=== PATIENT | male | born 1980 | race Caucasian/White ===

== ENCOUNTER 2020-02-14 08:11 | Emergency (ER) | payer MEDICAID ==
[~2020-02-14] VITALS: Ht 180.3 cm; Wt 75.0 kg
--- NOTE | 2020-02-14 08:18 | NUR ---
PT HAS CO PARANOIA THAT PEOPLE ARE AFTER HIM. PT DENIES SI OR WANTING TO HARM OTHERS. PT STATES HE HAS TRAVELED FROM [place] AND [place]. PT ADMITS TO DRINKING AND METH USE. PT SPEECH RAPID, BUT CLEAR THOUGHTS AND SELF AWARE. NO INJURIES. STATES HE IS DEHYDRATED AND MALNOURISHED. VSS
[2020-02-14] MEDS ORDERED: LORazepam 2 MG/ML, 1ML ONE (08:28)
[2020-02-14] MEDS ORDERED: THIAMINE 100MG TABLET ONE (08:28)
[2020-02-14] MEDS ORDERED: LORazepam 2 MG/ML, 1ML IVPush ONE (08:30)
[2020-02-14] MEDS ORDERED: SODIUM CHLORIDE 0.9% 1,000ML IVBOLUS ONE (08:30)
[2020-02-14] MEDS ORDERED: SODIUM CHLORIDE FLUSH 10ML SYR IVF ONE (08:30)
[2020-02-14] MEDS ORDERED: THIAMINE 100MG TABLET PO ONE (08:30)
[2020-02-14 08:56] LABS: BASOPHILS # (AUTO) 0.07 x10^3/uL (0-0.1); BASOPHILS % (AUTO) 1 % (0-1); EOSINOPHILS # (AUTO) 0.07 x10^3/uL (0-0.4); EOSINOPHILS % (AUTO) 1 % (1-7); LYMPHOCYTES # (AUTO) 1.44 x10^3/uL (1-3.4); LYMPHOCYTES % (AUTO) 25 % (22-44); MD NO; MEAN CORPUSCULAR HEMOGLOBIN 29.2 pg (27.5-34.5); MEAN CORPUSCULAR VOLUME 88.7 fL (81-97); MEAN PLATELET VOLUME 7.9 fL (7.4-10.4); MONOCYTES # (AUTO) 0.42 x10^3/uL (0.2-0.8); MONOCYTES % (AUTO) 7 % (2-9); NEUTROPHILS # (AUTO) 3.88 x10^3/uL (1.8-6.8); NEUTROPHILS % (AUTO) 66 % (42-75); PLATELET COUNT 300 x10^3/uL (130-400); RED BLOOD COUNT 4.91 x10^6/uL (4.38-5.82); RED CELL DISTRIBUTION WIDTH 14.1 % (9.4-14.8)
[2020-02-14 09:07] LABS: ALBUMIN 3.6 g/dL (3.4-5.0); ANION GAP 8 mmol/L (5-15); CALCIUM 8.4 mg/dL (8.5-10.1); CHLORIDE 107 mmol/L (98-107); CREATININE 0.95 mg/dL (0.7-1.3); SALICYLATE LEVEL < 1.7 mg/dL (2.8-20.0)
[2020-02-14 09:14] LABS: TROPONIN I < 0.015 ng/mL (0.000-0.045)
[2020-02-14 09:32] LABS: AMPHETAMINE SCREEN, URINE Negative (Negative); BARBITURATE SCREEN, URINE Negative (Negative); BENZODIAZEPINE SCREEN, URINE Negative (Negative); CANNABINOID SCREEN, URINE Negative (Negative); COCAINE SCREEN, URINE Negative (Negative); METHADONE SCREEN, URINE Negative (Negative); OPIATE SCREEN, URINE Negative (Negative)
--- NOTE | 2020-02-14 09:43 | NUR ---
MEDICATED PER ORDERS. GIVEN MEAL TRAY.
--- NOTE | 2020-02-14 10:30 | NUR ---
PT RESTING. VOIDED CLEAR URINE IN URINAL
--- NOTE | 2020-02-14 12:09 | NUR ---
PT RESTING. ORDERED MEAL TRAY. WAITING FOR [facility]WOT BEY
--- NOTE | 2020-02-14 13:30 | NUR ---
PT RESTING. NO NEEDS AT THIS TIME
[2020-02-14] MEDS ORDERED: OLANZAPINE 10 MG TABLET ONE (13:35)
[2020-02-14] MEDS: OLANZAPINE 10 MG TABLET PO SCH (13:37)
--- NOTE | 2020-02-14 14:00 | NUR ---
ACCORDING TO SOTERO MONREAL, PT WILL BE ON HOLD UNTIL FAMILY COMES FROM [place] TO EMERGENCY ROOM TECH PT.
--- NOTE | 2020-02-14 15:51 | NUR ---
report to PAULIE
--- NOTE | 2020-02-14 16:08 | NUR ---
PT MOVED TO 1. HOSPITAL BED. IV DC'D PER MD VARELA
--- NOTE | 2020-02-14 16:34 | NUR ---
PER [facility] PT ON SAFETY PLAN WITH FATHER WHO LIVES IN [place]. FATHER TO EXTERMINATOR HELPER PT TOMORROW (02/15/20) AROUND 1500
--- NOTE | 2020-02-14 16:42 | NUR ---
THROUGHPUT NOTE: DENIED BY [facility] ON [facility]. PAPERWORK FAXED TO [facility] AND [place].
--- NOTE | 2020-02-14 16:47 | NUR ---
THROUGHPUT NOTE: PACKET FOR ADMISSION TO [facility] AND [facility] FAXED INCLUDING THE LEGAL HOLD.
--- NOTE | 2020-02-14 17:26 | NUR ---
PT AROUSES TO [facility], NAD, PT DENIES NEEDS AT THIS TIME
--- NOTE | 2020-02-14 17:55 | NUR ---
PT RECEIVED MEAL TRAY AND WATER X2, DENIES FURTHER NEEDS AT THIS TIME
--- NOTE | 2020-02-14 18:58 | NUR ---
PT RECEIVED MEAL TRAY AND WATER X2, DENIES FURTHER NEEDS AT THIS TIME
--- NOTE | 2020-02-14 19:20 | NUR ---
PATIENT RESTING IN BED, EVEN UNLABORED RESPIRATIONS, NO NOTED ACUTE DISTRESS. TOLERATING INTERVENTIONS WELL. SITTER WITHIN VIEW OF PATIENT. WILL CONTINUE TO MONITOR.
--- NOTE | 2020-02-14 20:40 | NUR ---
PATIENT RESTING IN BED, EVEN UNLABORED RESPIRATIONS, NO NOTED ACUTE DISTRESS. TOLERATING INTERVENTIONS WELL. SITTER WITHIN VIEW OF PATIENT. WILL CONTINUE TO MONITOR.
--- NOTE | 2020-02-14 21:30 | NUR ---
PATIENT RESTING IN BED, EVEN UNLABORED RESPIRATIONS, NO NOTED ACUTE DISTRESS. TOLERATING INTERVENTIONS WELL. SITTER WITHIN VIEW OF PATIENT. WILL CONTINUE TO MONITOR.
--- NOTE | 2020-02-14 22:40 | NUR ---
PATIENT RESTING IN BED, EVEN UNLABORED RESPIRATIONS, NO NOTED ACUTE DISTRESS. TOLERATING INTERVENTIONS WELL. SITTER WITHIN VIEW OF PATIENT. WILL CONTINUE TO MONITOR.
--- NOTE | 2020-02-14 23:41 | NUR ---
PATIENT RESTING IN BED, EVEN UNLABORED RESPIRATIONS, NO NOTED ACUTE DISTRESS. TOLERATING INTERVENTIONS WELL. SITTER WITHIN VIEW OF PATIENT. WILL CONTINUE TO MONITOR.
--- NOTE | 2020-02-15 01:12 | NUR ---
PATIENT RESTING IN BED, EVEN-UNLABORED RESPIRATIONS NOTED. SITTER IN VIEW OF PATIENT. WILL CONTINUE TO MONITOR.
--- NOTE | 2020-02-15 03:30 | NUR ---
PATIENT RESTING IN BED, NO NOTED ACUTE DISTRESS. NO NOTED NEEDS AT THIS TIME. SITTER WITHIN VIEW OF PATIENT. WILL CONTINUE TO MONITOR.
--- NOTE | 2020-02-15 04:43 | NUR ---
PATIENT RESTING IN BED, NO NOTED NEEDS AT THIS TIME. WILL CONTINUE TO MONITOR.
--- NOTE | 2020-02-15 06:56 | NUR ---
REPORT GIVEN TO CHARU VICKERS.
--- NOTE | 2020-02-15 07:04 | NUR ---
DIET TRAY ORDERED AT THIS TIME.
--- NOTE | 2020-02-15 07:04 | NUR ---
REPORT RECEIVED FROM MELVIN BOX.
--- NOTE | 2020-02-15 08:09 | NUR ---
pt sleeping in hospital bed. resps even and unlabored. sitter monitoring from hallway for safety. room remains secure.
--- NOTE | 2020-02-15 08:11 | NUR ---
diet tray provided at this time.
[2020-02-15] MEDS ORDERED: OLANZAPINE 10 MG TABLET ONE (08:24)
[2020-02-15] MEDS: OLANZAPINE 10 MG TABLET PO SCH (08:30)
--- NOTE | 2020-02-15 08:34 | NUR ---
pt medicated per emar. pt tolerated well. pt's aox4. resps even and unlabored. sitter monitoring from count includes the [facility] for safety. room remains secure.
--- NOTE | 2020-02-15 09:40 | NUR ---
PATIENT RESTING IN BED. RESPS EVEN AND UNLABORED. SITTER MONITORING FROM HALLWAY FOR SAFETY. ROOM REMAINS SECURE. WILL CONTINUE TO MONITOR.
--- NOTE | 2020-02-15 10:17 | NUR ---
PATIENT RESTING IN BED. RESPS EVEN AND UNLABORED. SITTER MONITORING FROM HALLWAY FOR SAFETY. ROOM REMAINS SECURE. WILL CONTINUE TO MONITOR.
--- NOTE | 2020-02-15 11:02 | NUR ---
DIET TRAY ORDERED AT THIS TIME.
--- NOTE | 2020-02-15 11:28 | NUR ---
FINANCIAL LEGAL ASSISTANT PSYCH AT BEDSIDE TO RE-EVALUATE AT THIS TIME.
--- NOTE | 2020-02-15 12:19 | NUR ---
MEAL TRAY PROVIDED AT THIS TIME.
--- NOTE | 2020-02-15 12:52 | NUR ---
PT AMB TO BR WITH STEADY GAIT.
--- NOTE | 2020-02-15 13:02 | NUR ---
TASK RN NOTE: PT LAYING BACK IN BED, NAD NOTED AT THIS TIME. LUNCH TRAY COMPLETED AND REMOVED. SITTER OUTSIDE OF ROOM FOR DIRECT OBSERVATION AND Q15 MIN SAFETY CHECKS.
[2020-02-15 13:14] VITALS: BP 111/60
--- NOTE | 2020-02-15 14:36 | NUR ---
PT'S FATHER IS HERE TO PICK HIM UP AT THIS TIME. PT'S AOX4. RESPS EVEN AND UNLABORED. PT AMB TO DC WITH STEADY GAIT.
== END 2020-02-15 14:36 | disposition home or self-care (01) ==
LOC: ED 09:00
DX: F23 Brief psychotic disorder (principal); F41.1 Generalized anxiety disorder
CPT/HCPCS: 36415; 71045; 80048; 80307; 82040; 83880; 84484; 85025; 93005; 96374; 99285; J2060; J7030